=== PATIENT | female | born 1995 | race Hispanic/Latino ===

== ENCOUNTER 2017-12-11 11:36 | Emergency (ER) | payer SELFPAY | END 2017-12-11 12:14 | disposition home or self-care (01) | LOC: EDH 11:36 | DX: R21 Rash and other nonspecific skin eruption (principal) | CPT/HCPCS: 99281 ==

== ENCOUNTER 2022-01-27 20:52 | Emergency (ER) | payer OTHER ==
[~2022-01-27] VITALS: Ht 147.3 cm; Wt 73.0 kg
[2022-01-27] MEDS ORDERED: IBUPROFEN 400 MG TABLET ONE (21:10)
[2022-01-27] MEDS ORDERED: IBUPROFEN 400 MG TABLET PO ONE (21:30)
[2022-01-27 22:09] VITALS: BP 121/81
[2022-01-27] MEDS ORDERED: CYCL5TAB PO (22:20)
== END 2022-01-27 22:26 | disposition home or self-care (01) ==
LOC: EDH 20:52
DX: M25.512 Pain in left shoulder (principal); V49.69XA Unspecified car occupant injured in collision with other motor vehicles in traffic accident, initial encounter; Y93.89 Activity, other specified; Y92.413 State road as the place of occurrence of the external cause; Y99.8 Other external cause status
CPT/HCPCS: 71045; 73030; 81025